=== PATIENT | male | born 1965 | race Caucasian/White ===

== ENCOUNTER 2023-06-23 01:12 | Emergency (ER) | payer OTHER ==
[~2023-06-23] VITALS: Ht 175.3 cm; Wt 202.4 kg
[2023-06-23 01:14] VITALS: TEMP 97.7
[2023-06-23] MEDS ORDERED: methylPREDNISolone 125MG 2ML VIAL IV ONE (01:30)
[2023-06-23] MEDS ORDERED: NS 1,000 ML IV ONE (01:30)
[2023-06-23] MEDS ORDERED: dexAMETHasone 20MG/5ML VIAL IV ONE (01:50)
[2023-06-23 04:00] VITALS: BP 126/55; O2SAT 96
[2023-06-23] MEDS ORDERED: NORV5TAB PO (04:17)
[2023-06-23] MEDS ORDERED: PRED20TA PO (04:20)
[2023-06-23] MEDS ORDERED: PEPC1TAB5 PO (04:20)
[2023-06-23] MEDS ORDERED: CETI-24 PO (04:20)
== END 2023-06-23 04:40 | disposition home or self-care (01) ==
LOC: M ED 01:12
DX: T78.40XA Allergy, unspecified, initial encounter (principal); I10 Essential (primary) hypertension
CPT/HCPCS: 93041; 94760; 96361; 96374; 99285; J1100

== ENCOUNTER 2023-07-02 09:05 | Emergency (ER) | payer OTHER ==
[~2023-07-02] VITALS: Ht 175.3 cm; Wt 201.0 kg
[~2023-07-02 09:05] MED LIST: CETI-24 PO; NORV5TAB PO; PEPC1TAB5 PO; PRED20TA PO
[2023-07-02] MEDS ORDERED: zyflamend (09:35)
[2023-07-02] MEDS ORDERED: METH4PACK PO (09:35)
[2023-07-02] MEDS ORDERED: CIDA500T2 PO (09:35)
[2023-07-02] MEDS ORDERED: DORZ2SOL5 (09:35)
[2023-07-02] MEDS ORDERED: SIMV40TA20 (09:35)
[2023-07-02] MEDS ORDERED: VITA100093 (09:35)
[2023-07-02] MEDS ORDERED: EPIP0.3I2 IM (11:51)
[2023-07-02] MEDS ORDERED: PEPC1TAB5 PO (11:51)
[2023-07-02 11:57] VITALS: BP 190/99; TEMP 98.7; O2SAT 98
== END 2023-07-02 11:58 | disposition home or self-care (01) ==
LOC: M ED 09:05
DX: H02.844 Edema of left upper eyelid (principal); T78.40XA Allergy, unspecified, initial encounter; I10 Essential (primary) hypertension; E78.5 Hyperlipidemia, unspecified; Z88.8 Allergy status to other drugs, medicaments and biological substances

== ENCOUNTER 2023-07-10 18:15 | Emergency (ER) | payer OTHER ==
[~2023-07-10] VITALS: Ht 175.3 cm; Wt 201.0 kg
[~2023-07-10 18:15] MED LIST changes: +CIDA500T2 PO; +DORZ2SOL5; +EPIP0.3I2 IM; +METH4PACK PO; +SIMV40TA20; +VITA100093; +zyflamend
[2023-07-10] MEDS ORDERED: TIMO5DRO5 OP (18:23)
[2023-07-10] MEDS ORDERED: FLUORESCEIN OPHTH 1MG STRIP OD ONE (19:10)
[2023-07-10] MEDS ORDERED: PROPARACAINE 0.5% OPHTH SOL 15ML OD ONE (19:10)
[2023-07-10 20:25] VITALS: BP 194/110; TEMP 98.3; O2SAT 97
[2023-07-10] MEDS ORDERED: OLOPATADINE 0.1% OPHTH SOL 5ML(PATANOL) OD SCH (21:00)
== END 2023-07-10 20:28 | disposition home or self-care (01) ==
LOC: M ED 18:15
DX: H02.843 Edema of right eye, unspecified eyelid (principal); I10 Essential (primary) hypertension; E78.5 Hyperlipidemia, unspecified; H40.9 Unspecified glaucoma; Z79.899 Other long term (current) drug therapy; Z88.8 Allergy status to other drugs, medicaments and biological substances